=== PATIENT | male | born 1965 | race Caucasian/White ===

== ENCOUNTER 2022-12-16 06:37 | Emergency (ER) | payer OTHER, SELFPAY ==
[2022-12-16 06:41] VITALS: BP 159/96; PULSE 98; RESP 16; TEMP 36.8; O2SAT 94; BMI 29.4
--- OUTSIDE RECORDS SUMMARY | 2022-12-16 07:02 | XMS_ITS | Continuity of Care Document ---
Author Name Unknown Organization [facility] Address [address] [place] [address]- Care Team Providers Care Cna Name Role Phone Herber GONZALEZ, Evan Costello Primary Care Physician Encounter [facility] [place] Date(s): 09/21/22 - 10/21/22 [facility] Adult [address] [place] [address]- Allergies, Adverse Reactions, Alerts No Known Allergies Immunizations Given and Recorded Vaccine Date Status Refusal Reason SARS-CoV-2 (COVID-19) mRNA-1273 vaccine 03/16/21 R ecorded SARS-CoV-2 (COVID-19) mRNA-1273 vaccine 02/16/21 R ecorded Medications atorvastatin 10 mg oral tablet 1 tablet = 10 mg, By Mouth, Daily, # 30 tablet, 11 Refills, Maintenance, 09/24/22 14:30:00 EST, [facility]/pharmacy #[id number], Partial fill upon patient request if the prescription is for a schedule II opioid drug., 177.8, cm, 09/24/22 13:45:00 EST, Height Start Date: 09/24/22 Status: Ordered lisinopril 5 mg oral tablet 1, tablet, By Mouth, 2 times a day, # 180 tablet, Refills 3, Tot. Refills 3, Maintenance, 06/14/22 13:57:00 EDT, Route to Pharmacy Electronically, [facility]/pharmacy #[id number], 177.8, cm, 06/14/22 13:22:00 EDT, Height Start Date: 06/14/22 Status: Ordered LORazepam 0.5 mg oral tablet 1 tablet = 0.5 mg, By Mouth, Daily, PRN as needed for anxiety, # 30 tablet, 0 Refills, Maintenance,09/22/22 11:40:00 EST Start Date: 09/22/22 Status: Ordered sildenafil 100 mg oral tablet 1 tablet = 100 mg, By Mouth, Daily, 1 hour before sexual activity, # 10 tablet, 5 Refills, Maintenance, 06/14/22 13:59:00 EDT, Tablet, [id number], Partial fill upon patient request if the prescription is for a schedule II opioid drug., 177.8,... Start Date: 06/14/22 Status: Ordered Problem List Condition Confirmation Course Effective Dates Status H ealth Status Informant Hyperglycemia Confirmed Active Hyperlipidemia ascvd 13% as of 09/20 Confirmed Active Hypertension Confirmed Active Inguinal hernia, right Confirmed Active Social History Social History Type Response Smoking Status Never smoker entered on: 08/23/17 Sex Patient Care team information Care Team Personnel Name: Evan Craven MD Position: [facility] Primary Care Physician Member Role: PCP Address: Address: [address] [place] [address]- Care Team Related Persons Name: VAZQUEZ AWLSH Address: home [address] [place] [address] Name: Ly WALSH Address: [address] [place] [address]
--- OUTSIDE RECORDS SUMMARY | 2022-12-16 07:02 | XMS_ITS | Continuity of Care Document ---
Author Name Unknown Organization [facility] lt Address [address] [place] [address]- Care Team Providers Care Boat Painter Name Role Phone Evan Craven MD Primary Care Physician [phone] [id number]25[facility]20 [facility] Adult [address] [place] [address]- [facility] Attending Physician: Evan Craven MD Allergies, Adverse Reactions, Alerts Substance Reaction Severity Status NKA Active Medications lisinopril 5 mg oral tablet See Instructions, # 90 tablet, Refills 3 Tot. Refills 3, TAKE 1 TABLET BY MOUTH EVERY DAY, [facility]/pharmacy #[id number] Start Date: 06/05/19 Status: Ordered Problem List Condition Effective Dates Status Health Status Inform ant Anxiety(Confirmed) Active Hypertension(Confirmed) Active Inguinal hernia, right(Confirmed) Active Social History Social History Type Response Smoking Status Never smoker entered on: 08/23/17 Sex
--- OUTSIDE RECORDS SUMMARY | 2022-12-16 07:02 | XMS_ITS | Continuity of Care Document ---
Author Name Unknown Organization [facility] Address [address] [place] [address]- Care Team Providers Care Parquetry Layer Name Role Phone Herber GONZALEZ, Evan Costello Primary Care Physician [phone] Encounter [facility] Date(s): 09/24/22 - 10/24/22 [facility] Adult [address] [place] [address]- Attending Physician: Admtr, Pb8 Admitting Physician: Admtr Ar8 Referring Physician: Admtr, Ar8 Allergies, Adverse Reactions, Alerts No Known Allergies Immunizations Given and Recorded Vaccine Date Status Refusal Reason SARS-CoV-2 (COVID-19) mRNA-1273 vaccine 03/16/21 R ecorded SARS-CoV-2 (COVID-19) mRNA-1273 vaccine 02/16/21 R ecorded Medications atorvastatin 10 mg oral tablet 1 tablet = 10 mg, By Mouth, Daily, # 30 tablet, 11 Refills, Maintenance, 09/24/22 14:30:00 EST, [facility]/pharmacy #[id number], Partial fill upon patient request if the prescription is for a schedule II opioid drug., 177.8, cm, 09/24/22 13:45:00 EST, Height Start Date: 09/24/22 Status: Ordered lisinopril 5 mg oral tablet 1, tablet, By Mouth, 2 times a day, # 180 tablet, Refills 3, Tot. Refills 3, Maintenance, 06/14/22 13:57:00 EDT, Route to Pharmacy Electronically, [facility]/pharmacy #[id number], 177.8, cm, 06/14/22 13:22:00 EDT, Height [...] 5 Refills, Maintenance, 06/14/22 13:59:00 EDT, Tablet, [facility]/pharmacy #[id number], Partial fill upon patient request if [...] Status Never smoker entered on: 08/23/17 Sex EKG study * Event Display: EKG Authored Date: [id number] Patient Care team information Care Team Personnel Name: Herber GONZALEZ, Evan Costello Position: [facility] Primary Care Physician Member Role: PCP Address: Address: [address] [place] [address]- Care Team Related Persons Name: VAZQUEZ WALSH Address: home [address] [place] [address] Name: Ly WALSH Address: [address] [place] [address]
--- OUTSIDE RECORDS SUMMARY | 2022-12-16 07:02 | XMS_ITS | Continuity of Care Document ---
Author Name Unknown Organization [facility] Address [address] [place] [address]- Care Team Providers Care Powerhouse Laborer Name Role Phone Herber GONZALEZ, Evan Costello Primary Care Physician En[place] [facility] [place] Date(s): 09/20/22 - 10/20/22 [facility] Adult [address] [place] [address]- Allergies, Adverse Reactions, Alerts No Known Allergies Immunizations Given and Recorded Vaccine Date Status Refusal Reason SARS-CoV-2 (COVID-19) mRNA-1273 vaccine 03/16/21 R ecorded SARS-CoV-2 (COVID-19) mRNA-1273 vaccine 02/16/21 R ecorded Medications atorvastatin 10 mg oral tablet 1 tablet = 10 mg, By Mouth, Daily, # 30 tablet, 11 Refills, Maintenance, 09/24/22 14:30:00 EST, [facility]/pharmacy #[id number], Partial fill upon patient request if the prescription is for a schedule II opioid drug., 177.8, cm, 09/24/22 13:45:00 EST, Height Start Date: 09/24/22 Status: Ordered lisinopril 5 mg oral tablet 1, tablet, By Mouth, 2 times a day, # 180 tablet, Refills 3, Tot. Refills 3, Maintenance, 06/14/22 13:57:00 EDT, Route to Pharmacy Electronically, [facility]/pharmacy #[id number], 177.8, cm, 06/14/22 13:22:00 EDT, Height [...] Team Personnel Name: Evan Craven MD Position: [facility] Primary Care Physician Member Role: PCP Address: Address: [address] [place] [address]- Care Team Related Persons Name: VAZQUEZ WALSH Address: [address] [place] [address] Name: Ly WALSH Address: [address] [place] [address]
--- OUTSIDE RECORDS SUMMARY | 2022-12-16 07:02 | XMS_ITS | Continuity of Care Document ---
Author Name Unknown Organization [facility] Address [address] [place] [address]- Care Team Providers Care Compensation Vice President Name Role Phone Herber GONZALEZ, Evan Costello Primary Care Physician Encounter [facility] [place] [place] Date(s): 09/17/22 - 10/17/22 [facility] Adult [address] [place] [address]- Allergies, Adverse Reactions, Alerts No Known Allergies Immunizations Given and Recorded Vaccine Date Status Refusal Reason SARS-CoV-2 (COVID-19) mRNA-1273 vaccine 03/16/21 R ecorded SARS-CoV-2 (COVID-19) mRNA-1273 vaccine 02/16/21 R ecorded Medications atorvastatin 10 mg oral tablet 1 tablet = 10 mg, By Mouth, Daily, # 30 tablet, 11 Refills, Maintenance, 09/24/22 14:30:00 EST, [facility]/pharmacy #[id number], Partial fill upon patient request if the prescription is for a schedule II opioid drug., 177.8, cm, 09/24/22 13:45:00 EST, Height Start Date: 09/24/22 Status: Ordered lisinopril 5 mg oral tablet 1, tablet, By Mouth, 2 times a day, # 180 tablet, Refills 3, Tot. Refills 3, Maintenance, 06/14/22 13:57:00 EDT, Route to Pharmacy Electronically, [facility]/pharmacy #[id number], 177.8, cm, 06/14/22 13:22:00 EDT, Height [...] 5 Refills, Maintenance, 06/14/22 13:59:00 EDT, Tablet, [facility]/pharmacy #[id number], Partial fill upon patient request if [...] Team Personnel Name: Evan Craven MD Position: [facility] Primary Care Physician Member Role: PCP Address: Address: [address] [place] [address]- Care Team Related Persons Name: VAZQUEZ WALSH Address: [address] [place] [address] Name: Ly WALSH Address: [address] [place] [address]
--- OUTSIDE RECORDS SUMMARY | 2022-12-16 07:02 | XMS_ITS | Continuity of Care Document ---
Author Name Unknown Organization [facility] lt Address [address] [place] [address]- Care Team Providers Care Church Musician Name Role Phone Herber GONZALEZ, Evan Costello Primary Care Physician [phone] Encounter [facility] [place] Date(s): 07/27/21 - 08/26/21 [facility] Adult [address] [place] [address]- Allergies, Adverse Reactions, Alerts Substance Reaction Severity Status NKA Active Immunizations Given and Recorded Vaccine Date Status Refusal Reason SARS-CoV-2 (COVID-19) mRNA-1273 vaccine 03/16/21 R ecorded SARS-CoV-2 (COVID-19) mRNA-1273 vaccine 02/16/21 R ecorded Problem List Condition Effective Dates Status Health Status Inform ant Anxiety(Confirmed) Active Hypertension(Confirmed) Active Inguinal hernia, right(Confirmed) Active Social History Social History Type Response Smoking Status Never smoker entered on: 08/23/17 Sex
--- OUTSIDE RECORDS SUMMARY | 2022-12-16 07:02 | XMS_ITS | Continuity of Care Document ---
Author Name Unknown Organization [facility] lt Address [address] [place] [address]- Care Team Providers Care Er Manager Name Role Phone Herber GONZALEZ, Evan Costello Primary Care Physician [place] [facility] [place] Date(s): 12/26/19 - 01/25/20 [facility] Adult [address] [place] [address]- [facility] Attending Physician: Chuck Hughes Admitting Physician: AdmChuck palm Referring Physician: Admtr, Pb8 Allergies, Adverse Reactions, Alerts Substance Reaction Severity Status NKA Active Medications lisinopril 5 mg oral tablet See Instructions, # 90 tablet, Refills 3 Tot. Refills 3, TAKE 1 TABLET BY MOUTH EVERY DAY, [facility]/pharmacy #[id number] Start Date: 06/05/19 Status: Ordered Problem List Condition Effective Dates Status Health Status Inform ant Anxiety(Confirmed) Active Hypertension(Confirmed) Active Inguinal hernia, right(Confirmed) Active Social History Social History Type Response Smoking Status Never smoker entered on: 08/23/17 Sex
--- OUTSIDE RECORDS SUMMARY | 2022-12-16 07:02 | XMS_ITS | Continuity of Care Document ---
Author Name Unknown Organization [facility] Address Unknown Care Team Providers Care Production Support Consultant Name Role Phone Herber GONZALEZ, Evan Costello Primary Care Physician Encounter [facility] Date(s): 08/05/21 - 09/04/21 [facility] Attending Physician: Chuck Hughes Admitting Physician: Chuck Hughes Referring Physician: AdmtrChuck Allergies, Adverse Reactions, Alerts Substance Reaction Severity [...]
--- OUTSIDE RECORDS SUMMARY | 2022-12-16 07:02 | XMS_ITS | Continuity of Care Document ---
Author Name Unknown Organization [facility] lt Address [address] [place] [address]- Care Team Providers Care Trailhead Construction Worker Name Role Phone Evan Craven MD Primary [id number] Date[facility] 06/14[facility]22 - 06/21/22 [facility] Adult [address] [place] [address]- Attending Physician: Evan Craven MD Allergies, Adverse Reactions, Alerts No Known Allergies Immunizations Given and Recorded Vaccine Date Status Refusal Reason SARS-CoV-2 (COVID-19) mRNA-1273 vaccine 03/16/21 R ecorded SARS-CoV-2 (COVID-19) mRNA-1273 vaccine 02/16/21 R ecorded Medications lisinopril 5 mg oral tablet 1, tablet, By Mouth, 2 times a day, # 180 tablet, Refills 3, Tot. Refills 3, Maintenance, 06/14/22 13:57:00 EDT, Route to Pharmacy Electronically, [facility]/pharmacy #[id number], 177.8, cm, 06/14/22 13:22:00 EDT, Height Start Date: 06/14/22 Status: Ordered sildenafil 100 mg oral tablet 1 tablet = 100 mg, By Mouth, Daily, 1 hour before sexual activity, # 10 tablet, 5 Refills, Maintenance, 06/14/22 13:59:00 EDT, Tablet, [facility]/pharmacy #1130, Partial fill upon patient request if the prescription is for a schedule II opioid drug., 177.8,... Start Date: 06/14/22 Status: Ordered Problem List Condition Confirmation Course Effective Dates Status Health St atus Informant Hypertension Confirmed Active Inguinal hernia, right Confirmed Active Vital Signs Most recent to oldest [Reference Range]: 1 2 Height 177.8 cm (06/14/22 2:00 PM) 177.8 cm (06/14/22 1:22 PM) Weight 93.1 kg (06/14/22 1:22 PM) Oxygen Saturation [94-100 %] 96 % (06/14/22 1:22 PM) Pulse Rate [55-90 bpm] 85 bpm (06/14/22 1: PM) Body Mass Index [18.5-24.99 kg/m2] 29.45 kg/m2 *H* (06/14/22 1:22 PM) Blood Pressure [90-138/55-84 mm Hg] 138/ 78mm Hg (06/14/22 2:00 PM) 155/81mm Hg *H* (06/14/22 1:22 PM) Blood pressure sites Arm, left (06/14/22 2:00 PM) Arm, left (06/14/22 1:22 PM) Social History Social History Type Response Smoking Status Never smoker entered on: 08/23/17 Sex Patient Care team information Personnel Name: Herber GONZALEZ, Evan Costello Address: Address: [address] [place] [address]-
--- OUTSIDE RECORDS SUMMARY | 2022-12-16 07:02 | XMS_ITS | Continuity of Care Document ---
Author Name Unknown Organization [facility] Address [address] [place] [address]- Care Team Providers Care Roller Coaster Designer Name Role Phone Herber GONZALEZ, Evan Costello Primary Care Physician [place] [facility] [place] [place] [id number] Date(s): 09/20/22 - 09/27/22 [facility] Adult [address] [place] [address]- Attending Physician: Alanis Castillo NP Allergies, Adverse Reactions, Alerts No Known Allergies Immunizations Given and Recorded Vaccine Date Status Refusal Reason SARS-CoV-2 (COVID-19) mRNA-1273 vaccine 03/16/21 R ecorded SARS-CoV-2 (COVID-19) mRNA-1273 vaccine 02/16/21 R ecorded Medications atorvastatin 10 mg oral tablet 1 tablet = 10 mg, By Mouth, Daily, # 30 tablet, 11 Refills, Maintenance, 09/24/22 14:30:00 EST, [facility]/pharmacy #1130, Partial fill upon patient request if the prescription is for a schedule II opioid drug., 177.8, cm, 09/24/22 13:45:00 EST, Height Start Date: 09/24/22 Status: Ordered lisinopril 5 mg oral tablet 1, tablet, By Mouth, 2 times a day, # 180 tablet, Refills 3, Tot. Refills 3, Maintenance, 06/14/22 13:57:00 EDT, Route to Pharmacy Electronically, [facility]/pharmacy #[id number], 177.8, cm, 06/14/22 13:22:00 EDT, [...] [Reference Range]: 1 2 Height 177.8 cm (09/20/22 8:28 AM) 177.8 cm (09/20/22 8:21 AM) Weight 92.4 kg (09/20/22 8:21 AM) Oxygen Saturation [94-100 %] 97 % (09/20/22 8:21 AM) Pulse Rate [55-90 bpm] 74 bpm (09/20/22 8:21 AM) Body Mass Index [18.5-24.99 kg/m2] 29.23 kg/m2 *H* (09/20/22 8:21 AM) Blood Pressure [90-138/55-84 mm Hg] 155/ 83mm Hg *H* (09/20/22 8:28 AM) 154/89mm Hg *H* (09/20/22 8:21 AM) Mode of Delivery (Oxygen) Room air (09/20/22 8:21 AM) Blood pressure sites Arm, left (09/20/22 8:28 AM) Arm, left (09/20/22 8:21 AM) Weight Obtained Via Standing scale (09/20/22 8:21 AM) Social History Social History Type Response Smoking Status Never smoker entered on: 08/23/17 Sex EKG study * Event Display: ECG 12-Lead Authored Date: Please click on pdf link to open report * Event Display: ECG 12-Lead Authored Date: Ventricular Rate: 73 BPM Atrial Rate: 73 BPM P-R Interval: 164 ms QRS Duration: 86 ms Q-T Interval: 402 ms QTC Calculation(Bazett): 442 ms P Florence: 43 degrees R Florence: -19 degrees T Florence: 1 degrees Normal sinus rhythm Normal ECG When compared with ECG of 11-JUN-2019 15:22, No significant change was found Confirmed by WEI ABRAMS MD ([id number]) on 09/21/2022 8:34:43 AM [place]: WEI ABRAMS MD Patient Care team information Care Team Personnel Name: Evan Craven MD Position: [facility] Primary Care Physician Member Role: PCP Address: Address: [address] [place] [address]- Care Team Related Persons Name: VAZQUEZ WALSH Address: home [address] [place] [address] Name: Ly WALSH Address: [address] [place] [address]
--- OUTSIDE RECORDS SUMMARY | 2022-12-16 07:02 | XMS_ITS | Continuity of Care Document ---
Author Name Unknown Organization [facility] Address [address] [place] [address]- Care Team Providers Care Coil Cutter Name Role Phone Herber GONZALEZ, Evan Costello Primary Care Physician [phone] En[place] [facility] [place] Date(s): 09/23/22 - 10/23/22 [facility] Adult [address] [place] [address]- Allergies, Adverse Reactions, Alerts No Known Allergies Immunizations Given and Recorded Vaccine Date Status Refusal Reason SARS-CoV-2 (COVID-19) mRNA-1273 vaccine 03/16/21 R ecorded SARS-CoV-2 (COVID-19) mRNA-1273 vaccine 02/16/21 R ecorded Medications atorvastatin 10 mg oral tablet 1 tablet = 10 mg, By Mouth, Daily, # 30 tablet, 11 Refills, Maintenance, 09/24/22 14:30:00 EST, [facility]/pharmacy #[id number], Partial fill upon patient request if the prescription is for a schedule II opioid drug., 177.8, cm, 09/24/22 13:45:00 EST, Height Start Date: 09/24/22 Status: Ordered lisinopril 5 mg oral tablet 1, tablet, By Mouth, 2 times a day, # 180 tablet, Refills 3, Tot. Refills 3, Maintenance, 06/14/22 13:57:00 EDT, Route to Pharmacy Electronically, [facility]/pharmacy #[id number], 177.8, cm, 06/14/22 13:22:00 EDT, [...] Team Personnel Name: Evan Craven MD Position: [facility] Primary Care Physician Member Role: PCP Address: Address: [address] [place] [address]- Care Team Related Persons Name: VAZQUEZ WALSH Address: home [address] [place] [address] Name: Ly WALSH Address: [address] [place] [address]
--- OUTSIDE RECORDS SUMMARY | 2022-12-16 07:02 | XMS_ITS | Continuity of Care Document ---
Author Name Unknown Organization [facility] D[facility] lt Address [address] [place] [address]- Care Team Providers Care Conservation Biology Professor Name Role Phone Herber GONZALEZ, Evan Costello Primary Care Physician [phone] Encounter [facility] [place] Date(s): 04/16/21 - 05/16/21 [facility] Adult [address] [place] [address]- Allergies, Adverse Reactions, Alerts Substance Reaction Severity Status NKA Active Immunizations Given and Recorded Vaccine Date Status Refusal Reason SARS-CoV-2 (COVID-19) mRNA-9696 vaccine 02/16/21 R ecorded Medications lisinopril 5 mg oral tablet 1, tablet, By Mouth, Daily, # 90 tablet, Refills 3, Tot. Refills 0, Maintenance, 07/06/20 16:02:00 EST, Route to Pharmacy Electronically, [id number], 177.8, cm, 06/25/19 13:41:00 EDT, Height, 97, kg, 06/18/19 11:02:00 EDT, Dry Weight Start Date: 07/06/20 Status: Ordered Problem List Condition Effective Dates Status Health Status Inform ant Anxiety(Confirmed) Active Hypertension(Confirmed) Active Inguinal hernia, right(Confirmed) Active Social History Social History Type Response Smoking Status Never smoker entered on: 08/23/17 Sex
--- OUTSIDE RECORDS SUMMARY | 2022-12-16 07:02 | XMS_ITS | Continuity of Care Document ---
Author Name Unknown Organization [facility] D[facility] lt Address [address] [place] [address]- Care Team Providers Care Wood Box Maker Name Role Phone Herber GONZALEZ, Evan Costello Primary Care Physician [phone] [place] [facility] [place]15[place]21 - 06/14/21 [facility] Adult [address] [place] [address]- Allergies, Adverse Reactions, Alerts Substance Reaction Severity [...]
--- OUTSIDE RECORDS SUMMARY | 2022-12-16 07:02 | XMS_ITS | Continuity of Care Document ---
Author Name Unknown Organization [facility] lt Address [address] [place] [address]- Care Team Providers Care Granular Operator Name Role Phone Herber GONZALEZ, Evan Costello Primary Care Physician [place] [facility] [place](s): 04/21/21 - 05/21/21 [facility] Adult [address] [place] [address]- Allergies, Adverse Reactions, Alerts Substance Reaction Severity Status NKA Active Immunizations Given and Recorded Vaccine Date Status Refusal Reason SARS-CoV-2 (COVID-19) mRNA-1273 vaccine 02/16/21 R ecorded Medications lisinopril 5 mg oral tablet 1, tablet, By Mouth, Daily, # 90 tablet, Refills 3, Tot. Refills 0, Maintenance, 07/06/20 16:02:00 EST, Route to Pharmacy Electronically, [id number], 177.8, cm, 06/25/19 13:41:00 EDT, Height, 97, kg, 06/18/19 11:02:00 EDT, Dry Weight Start Date: 07/06/20 Status: Ordered Problem List Condition Effective Dates Status Health Status Inform ant Anxiety(Confirmed) Active Hypertension(Confirmed) Active Inguinal hernia, right(Confirmed) Active Social History Social History Type Response Smoking Status Never smoker entered on: 08/23/17 Sex
--- NOTE | 2022-12-16 07:14 | ED_ITS ---
HPI - Wound/Laceration General Chief Complaint: Wound/Laceration Stated Complaint: hand lac at work Time Seen by Provider: 12/16/22 06:58 Source: patient Mode of arrival: ambulatory Limitations: no limitations History of Present Illness HPI narrative: A 7-year-old male presents with laceration of the right middle finger. This happened prior to arrival. Occurred at work. There was significant bleeding at the time. He ran the finger under with water 1st period of time, bandage in came to the emergency department. Denies any numbness or tingling. She has been able to move the digit without significant difficulty. Pain is mild to moderate. Worse with palpation and movement. Pain is not radiate Related Data Previous Rx's Medication Instructions Recorded cephalexin 500 mg tablet 500 mg PO TID #15 tabs 12/16/22 Allergies Allergy/AdvReac Type Severity Reaction Status Date / Time No Known Allergies Allergy Verified 12/16/22 07:03 [facility] Social History Social History Advance Directives: No Physical Exam Vital Signs: Vital Signs: Last Vital Signs Temp 98.2 F 12/16/22 06:41 Pulse 98 12/16/22 06:41 Resp 16 12/16/22 06:41 BP 159/96 H 12/16/22 06:41 Pulse Ox 94 12/16/22 06:41 O2 Del Method Room Air 12/16/22 06:41 BMI result Body Mass Index 29.4 GEN: Well developed, no acute distress, alert, oriented HEENT: Normocephalic, atraumatic, normal external ears, nose appears normal Eyes: Normal to appearance Neck: Supple, no lymphadenopathy Respiratory: Talks in complete sentences, no respiratory distress Extremities: No clubbing cyanosis or edema, able to flex and extend against resistance, neurovascularly intact Neurologic: No focal neurologic deficits, cranial nerves 2-12 intact, gait normal Skin: No rash, 2 cm laceration to the right 3rd D IP Course Course Course Narrative: Patient presents with laceration to the right 3rd digit. Patient will have laceration repaired. Patient has been counseled regarding wound care including watching for signs of infection such as redness, swelling, pain or purulent drainage. Examination is consistent with a laceration without any deep structure involvement. There is no evidence of deformity. Doubt fracture. Doubt tendon laceration as he is able to flex and extend against resistance. Neurovascularly intact. Tetanus will be updated today. Medications Administered Discontinued Medications Generic Name Dose Route Start Last Admin Trade Name Mckay PRN Reason Stop Dose Admin Cephalexin HCl 500 mg 12/16/22 07:04 12/16/22 07:16 Cephalexin 500 Mg Capsule PO 12/16/22 07:05 500 mg ONCE ONE Administration Diphtheria/Tetanus/Acell Pertussis 0.5 ml 12/16/22 07:03 12/16/22 07:16 Diphth,Pertus(Acell),Tet Adult 0.5 Ml Syringe IM 12/16/22 07:04 0.5 ml .ONCE ONE Administration Lidocaine HCl 10 ml 12/16/22 07:03 12/16/22 07:18 Lidocaine Hcl 1 % 20 Ml Vial INFILTRATI 12/16/22 07:04 10 ml ONCE ONE Administration Medical Decision Making Medical Decision Making MDM Narrative: esents with laceration to the right 3rd digit. Patient will have laceration repaired. Patient has been counseled regarding wound care including watching for signs of infection such as redness, swelling, pain or purulent drainage. Examination is consistent with a laceration without any deep structure involvement. There is no evidence of deformity. Doubt fracture. Doubt tendon laceration as he is able to flex and extend against resistance. Neurovascularly intact. Tetanus will be updated today. Differential Diagnosis Differential Diagnoses: The differential diagnosis associated with the presentation includes (Laceration, wound, abrasion, contusion) Finger laceration Prescription Management I considered prescription management with: Pain Medication and Antibiotic Procedures Laceration Laceration 1: Site: hand Side (If applicable): right Size (cm): 2 Description: linear Depth: simple, single layer Local Anesthetic: lidocaine 1% Amount of anesthesia used (mL): 5 Pre-repair: wound explored, irrigated extensively and deep structures intact Skin layer closed with: nylon Size (cm): 5-0 Number of sutures: 3 Technique: simple, interrupted Discharge Plan Discharge Clinical Impression: Laceration Patient Disposition: Home, Self-Care Instructions: Laceration (ED) Prescriptions: New cephalexin 500 mg tablet 500 mg PO TID Qty: 15 0RF Referrals: Physician,Unknown J [Primary Care Provider] - (primary care in 7 days for suture removal)
[2022-12-16] MEDS: Diphth,Pertus(ACell),Tet Adult 0.5 ML SYRINGE IM (07:16)
[2022-12-16] MEDS: cephALEXin 500 MG CAPSULE PO (07:16)
[2022-12-16] MEDS: Lidocaine HCl 1 % 20 ML VIAL 10 ML INFILTRATI (07:18)
== END 2022-12-16 08:08 | disposition home or self-care (01) ==
PROVIDERS: Emergency Provider Emergency Medicine
DX: S61.212A Laceration without foreign body of right middle finger without damage to nail, initial encounter (principal); W45.8XXA Other foreign body or object entering through skin, initial encounter; Y93.89 Activity, other specified; Y92.59 Other trade areas as the place of occurrence of the external cause; Y99.0 Civilian activity done for income or pay
CPT/HCPCS: 12001; 90471; 90715; 99282; 99284

== ENCOUNTER 2022-12-22 07:15 | Emergency (ER) | payer OTHER, SELFPAY ==
--- NOTE | 2022-12-22 07:29 | ED.GENADULT ---
HPI - General Adult General Stated complaint: stitch removal Time Seen by Provider: 12/22/22 07:29 Source: patient Mode of arrival: ambulatory Limitations: no limitations History of Present Illness HPI narrative: 57 yo male presents to the ER for suture removal on his right middle finger. He was seen here on 12/16 after a steel plate landed on his finger while at work. He required 3 sutures for repair. No issues with wound healing. He denies redness, pain or drainage. He has been using bacitracin. complaint: suture removal Location: right and upper extremity Relieving factors: none Exacerbating factors: none Associated symptoms: denies other symptoms Treatments prior to arrival: none Related Data Previous Rx's Medication Instructions Recorded cephalexin 500 mg tablet 500 mg PO TID #15 tabs 12/16/22 Allergies Allergy/AdvReac Type Severity Reaction Status Date / Time No Known Allergies Allergy Verified 12/22/22 07:34 Review of Systems Review of Systems: Yes all other systems are reviewed and are negative Physical Exam ED Appearance: Alert. Oriented X3. No acute distress. HEENT: normal inspection CVS: Normal heart rate and rhythm. Pulses normal. Respiratory: No respiratory distress. Skin: Skin warm and dry. Normal skin color. Normal skin turgor. No rashes. Extremities: right middle finger with appropriately healing irregularly shaped 1.5cn laceration with [address] edges well approximated. no erythema or drainage. Neuro: Oriented X 3. nonfocal Medical Decision Making Medical Decision Making MDM Narrative: 57 yo male presents for 3 sutures to be removed from his right middle finger that were placed 6 days ago. wound is healing nicely. no signs of infection. area was cleaned with alcohol and 3 sutures were removed, no complications. wound care discussed. stable for d/c home. Differential Diagnosis Differential Diagnoses: The differential diagnosis associated with the presentation includes appropriate wound healing, delayed wound healing, dehiscence, infection External Record Review External record reviewed: Outpatient record Critical Care Time Critical Care Time Critical Care Time: No Discharge Plan Discharge Clinical Impression: Encounter for removal of sutures Patient Disposition: Home, Self-Care Instructions: Stitches Removal (ED) Additional Instructions: Use bacitracin to the area to help with healing and prevent infection. Keep clean and covered. If you develop new or worsening symptoms call 911 or come back to the ER for further evaluation. Prescriptions: No Action cephalexin 500 mg tablet 500 mg PO TID Qty: 15 0RF
[2022-12-22 07:34] VITALS: BP 146/96; PULSE 97; RESP 18; O2SAT 96; BMI 29.4
--- NOTE | 2022-12-22 07:39 | PC.NURSE ---
pt a&ox3, vss, pt stitches removed and will discharge
== END 2022-12-22 07:39 | disposition home or self-care (01) ==
LOC: HO.ED 07:37
PROVIDERS: Emergency Provider Emergency Medicine; PCP Family Medicine
DX: Z48.02 Encounter for removal of sutures (principal)
CPT/HCPCS: 99283

== ENCOUNTER → 2023-06-24 09:31 | Outpatient (BNVA) | payer OTHER, SELFPAY | PROVIDERS: PCP Family Medicine; Visit Provider Internal Medicine | DX: Z77.098 Contact with and (suspected) exposure to other hazardous, chiefly nonmedicinal, chemicals (principal) | CPT/HCPCS: 99202 ==

== ENCOUNTER → 2023-06-27 09:23 | Outpatient (BNVA) | payer OTHER, SELFPAY | PROVIDERS: PCP Family Medicine; Visit Provider Internal Medicine | DX: T23.402A Corrosion of unspecified degree of left hand, unspecified site, initial encounter (principal) | CPT/HCPCS: 99213 ==